=== PATIENT | female | born 1980 | race Caucasian/White ===

== ENCOUNTER 2016-12-27 14:03 | Emergency (ER) | payer OTHER ==
[2016-12-27 14:12] VITALS: BP 135/88; PULSE 108; RESP 20; TEMP 98.8; O2SAT 94
== END 2016-12-27 14:21 | disposition left against medical advice (07) ==
LOC: CED 14:03
DX: Z53.21 Procedure and treatment not carried out due to patient leaving prior to being seen by health care provider (principal)